=== PATIENT | female | born 1985 | race Caucasian/White ===

== ENCOUNTER → 2023-05-22 15:30 | Outpatient (BNVA) | payer OTHER, SELFPAY | PROVIDERS: Visit Provider Nurse Practitioner Women's Health | DX: Z01.419 Encounter for gynecological examination (general) (routine) without abnormal findings (principal) | CPT/HCPCS: 82306; 84439; 84443; 84481; 85025 ==

== ENCOUNTER 2023-06-09 13:13 | Outpatient (CLI) | payer OTHER, SELFPAY ==
--- NOTE | 2023-06-09 13:19 | MM_ITS ---
WS: [id number] DIAGNOSTIC BILATERAL DIGITAL BREAST TOMOSYNTHESIS MAMMOGRAPHY WITH CAD LEFT breast ultrasound, limited HISTORY: N64.4 - Mastodynia COMPARISON: None available. TECHNIQUE: Bilateral craniocaudad, mediolateral oblique, and mediolateral views are submitted with to mosynthesis and SM. Spot compression LEFT CC and MLO. Computer aided detection utilized. Breast composition: The breasts are heterogeneously dense, which may obscure small masses. Palpable m arker is placed along the upper outer quadrant of the anterior LEFT breast at the site of pain and no dularity. No abnormality is identified by mammography. Soft tissues are symmetric. No calcifications. LEFT breast ultrasound, limited. There is a hypoechoic nodule LEFT breast, 2:00 3 cm from the nipple near the area of interest. This h ypoechoic nodule measures 7 x 7 x 6 mm. No increased vascularity. IMPRESSION: MM/[place] [id number] BI-RADS: 4-Suspicious Finding-Biopsy Should Be Considered FOLLOW UP: Biopsy Recommended Ultrasound-guided biopsy recommended of the hypoechoic mass in the LEFT breast at 2:00. This correlates with the area of pain and palpable nodularity. This ma y be a complex cyst. Neoplasm needs to be excluded. Notified Holly Pearson NP at 06/09/2023 2:43 PM.
--- NOTE | 2023-06-09 13:56 | US_ITS ---
WS: [id number] DIAGNOSTIC BILATERAL DIGITAL BREAST TOMOSYNTHESIS MAMMOGRAPHY WITH CAD LEFT breast ultrasound, limited HISTORY: N64.4 - Mastodynia COMPARISON: None available. TECHNIQUE: Bilateral craniocaudad, mediolateral oblique, and mediolateral views are submitted with to mosynthesis and SM. Spot compression LEFT CC and MLO. Computer aided detection utilized. Breast composition: The breasts are heterogeneously dense, which may obscure small masses. Palpable m arker is placed along the upper outer quadrant of the anterior LEFT breast at the site of pain and no dularity. No abnormality is identified by mammography. Soft tissues are symmetric. No calcifications. LEFT breast ultrasound, limited. There is a hypoechoic nodule LEFT breast, 2:00 3 cm from the nipple near the area of interest. This h ypoechoic nodule measures 7 x 7 x 6 mm. No increased vascularity. IMPRESSION: US/US breast LT limited* [id number] BI-RADS: 4-Suspicious Finding-Biopsy Should Be Considered FOLLOW UP: Biopsy Recommended Ultrasound-guided biopsy recommended of the hypoechoic mass in the LEFT breast at 2:00. This correlates with the area of pain and palpable nodularity. This ma y be a complex cyst. Neoplasm needs to be excluded. Notified oHlly Pearson NP at 06/09/2023 2:43 PM.
== END 2023-06-09 13:14 | disposition home or self-care (01) ==
PROVIDERS: PCP Family Medicine; Visit Provider Nurse Practitioner Women's Health
DX: N64.4 Mastodynia (principal); N63.21 Unspecified lump in the left breast, upper outer quadrant
CPT/HCPCS: 76642; 77062; G0279

== ENCOUNTER 2023-06-17 09:15 | Outpatient (CLI) | payer OTHER, SELFPAY ==
--- NOTE | 2023-06-17 10:30 | US_ITS ---
WS: [id number] ULTRASOUND-GUIDED LEFT BREAST BIOPSY HISTORY: Mass at 2:00. COMPARISON: 06/09/2023 Procedure, risks and complications are explained to the patient. Medications are reviewed. Consent is obtained. The mass in the LEFT breast is localized with ultrasound. Mass localizes to 2:00. Skin is cleansed wi th ChloraPrep and anesthetized with 1% buffered lidocaine. Small dermatome is made. Under sterile con ditions mass is biopsied with a 14-gauge Achieve needle. Multiple core biopsies are performed. Materi al placed in formalin and sent to pathology for review. No complications encountered. Breast tissue marker ([employer] ultrasound enhanced ribbon): Single. Patient left the radiology suite with no complications. Patient is instructed to return to [facility] or [facility] with any concerns. IMPRESSION: 1. Uncomplicated core needle biopsy small hypoechoic mass at 2:00 LEFT breast. US/[place] [id number] PATHOLOGY: Benign fibroadenoma. Negative for malignancy. RECOMMENDATION: Return to annual mammography.
== END 2023-06-17 09:16 | disposition home or self-care (01) ==
LOC: RAD 09:15
PROVIDERS: PCP Family Medicine; Visit Provider Nurse Practitioner Women's Health
DX: D24.2 Benign neoplasm of left breast (principal); N64.4 Mastodynia
CPT/HCPCS: 19083; 88305